=== PATIENT | male | born 1990 | race Caucasian/White ===

== ENCOUNTER 2016-03-26 07:40 | Inpatient (IN) | payer OTHER, MEDICAID ==
[2016-03-21 14:16] LABS: % IMMATURE GRANULYOCYTES 0.4 % (0.0-1.1); ABSOLUTE IMMATURE GRANULOCYTES 0.03 10^3/uL (0.00-0.10); ADD DIFF? NO; ADD MORPH? NO; ADD SCAN? NO; ATYPICAL LYMPHOCYTE FLAG 10 (0-99); FRAGMENT RBC FLAG 0 (0-99); HEMATOCRIT 48.4 % (40.0-51.0); HEMOGLOBIN 16.9 g/dL (13.7-17.5); LEFT SHIFT FLG 0 (0-99); LIPEMIA HEMOLYSIS FLAG 90 (0-99); MEAN CELL HEMOGLOBIN CONCENTR. 34.9 g/dL (32.4-36.7); MEAN CELL VOLUME 88.6 fL (81.5-99.8); MEAN PLATELET VOLUME 9.8 fL (8.7-11.7); PLATELET CLUMPS FLAG 0 (0-99); PLATELET COUNT 300 10^3/uL (150-400); RED BLOOD CELL COUNT 5.46 10^6/uL (4.40-6.38); RED CELL DISTRIBUTION WIDTH 12.6 % (11.5-15.2)
[2016-03-21 14:36] LABS: ANION GAP 11 mEq/L (8-16); CALCIUM 10.4 mg/dL (8.5-10.4); CARBON DIOXIDE 29 mEq/l (22-31); CHLORIDE 101 mEq/L (97-110); GLOMERULAR FILTRATION RATE > 60; GLUCOSE 86 mg/dL (70-100); POTASSIUM 4.3 mEq/L (3.5-5.2); SODIUM 141 mEq/L (134-144)
[2016-03-26] MEDS ORDERED: ceFAZolin 2 GM/DEXTROSE 100 ML IV ONE (09:00)
[2016-03-26] MEDS ORDERED: DEXAMETHASONE 10 MG/ML VIAL IVP ONE (09:00)
[2016-03-26] MEDS ORDERED: fentaNYL 100 MCG/2 ML INJ IT ONE (09:00)
[2016-03-26] MEDS ORDERED: morphINE PF 5 MG/10 ML INJ IT ONE (09:00)
[2016-03-26] MEDS ORDERED: LR 1,000 ML IV ONE (09:16)
[2016-03-26] MEDS ORDERED: LIDOCAINE 1% 5 ML SDV ID PRN (09:16)
[2016-03-26] MEDS ORDERED: REMIFENTANIL HCL 1 MG VIAL ONE ×3 (09:36→15:39)
[2016-03-26] MEDS ORDERED: fentaNYL 100 MCG/2 ML INJ ONE ×2 (09:36→16:08)
[2016-03-26] MEDS ORDERED: PROPOFOL 200 MG/20 ML VIAL ONE (09:37)
[2016-03-26] MEDS ORDERED: PROPOFOL/EMULSION 500 MG/50 ML BOTTLE IV ONE ×3 (09:37→15:39)
[2016-03-26] MEDS ORDERED: BUPIVACAINE 0.25% 30 ML SDV ONE (10:08)
[2016-03-26] MEDS ORDERED: THROMBIN (RECOMBINANT) 5,000 UNIT VIAL TP ONE (10:08)
[2016-03-26] MEDS ORDERED: BUPIVACAINE/EPI 0.25% 30 ML SDV ONE ×3 (10:08→16:28)
[2016-03-26] MEDS ORDERED: BACITRACIN 50,000 UNITS/10 ML SYR IRR ONE ×2 (10:09→11:53)
[2016-03-26] MEDS ORDERED: CITRATE DEXTROSE SOLN 500 ML BAG ONE ×2 (10:16→13:27)
[2016-03-26] MEDS ORDERED: MIDAZOLAM 2 MG/2 ML VIAL ONE (10:16)
[2016-03-26] MEDS ORDERED: HYDROmorphONE/DILAUDID 2 MG/ML SYR ONE ×2 (11:30→14:55)
[2016-03-26] MEDS ORDERED: KETAMINE 100 MG/10 ML SYR IVP ONE (15:39)
[2016-03-26] MEDS ORDERED: morphINE PF 10 MG/10 ML INJ ONE (16:09)
[2016-03-26 17:25] LABS: % IMMATURE GRANULYOCYTES 1.2 % (0.0-1.1); ABSOLUTE IMMATURE GRANULOCYTES 0.21 10^3/uL (0.00-0.10); ADD DIFF? NO; ADD MORPH? NO; ADD SCAN? NO; ATYPICAL LYMPHOCYTE FLAG 10 (0-99); FRAGMENT RBC FLAG 0 (0-99); HEMATOCRIT 38.9 % (40.0-51.0); HEMOGLOBIN 13.6 g/dL (13.7-17.5); LEFT SHIFT FLG 10 (0-99); LIPEMIA HEMOLYSIS FLAG 90 (0-99); MEAN CELL HEMOGLOBIN 31.4 pg (27.9-34.1); MEAN CELL VOLUME 89.8 fL (81.5-99.8); PLATELET CLUMPS FLAG 0 (0-99); PLATELET COUNT 269 10^3/uL (150-400); RED BLOOD CELL COUNT 4.33 10^6/uL (4.40-6.38); RED CELL DISTRIBUTION WIDTH 12.6 % (11.5-15.2)
[2016-03-26 17:44] LABS: INR 1.23 (0.83-1.16); PROTIME(PATIENT) 15.5 SEC (12.0-15.0)
[2016-03-26] MEDS ORDERED: diphenhydrAMINE 25 MG CAP PO PRN (18:19)
[2016-03-26] MEDS ORDERED: HYDROmorphONE/DILAUDID 1 MG/ML SYR IVP PRN (18:19)
[2016-03-26] MEDS ORDERED: MAGNESIUM HYDROXIDE 30 ML UDCUP PO PRN (18:19)
[2016-03-26] MEDS ORDERED: BISACODYL 10 MG SUPP PR PRN (18:19)
[2016-03-26] MEDS ORDERED: LACTULOSE 20 GM/30 ML UDCUP PO PRN (18:19)
[2016-03-26] MEDS ORDERED: ACETAMINOPHEN 325 MG TAB PO PRN (18:19)
[2016-03-26] MEDS ORDERED: ONDANSETRON DISINTEGRATING 4 MG TAB PO PRN (18:19)
[2016-03-26] MEDS ORDERED: DIAZEPAM 10 MG/2 ML SYR IVP PRN (18:19)
[2016-03-26] MEDS ORDERED: MAG HYDROX/AL HYDROX/SIMETH 30 ML UDCUP PO PRN (18:19)
[2016-03-26] MEDS ORDERED: NALOXONE HCL 0.4 MG/ML INJ IVP PRN (18:28)
--- NOTE | 2016-03-26 18:31 | POSTOPPROG ---
Post Op Note Date of Operation: 03/26/16 Surgeon: Venkata Gaitan First Front Ventilator: jarrod Anesthesiologist: Chago Hatch Anesthesia: GET(General Endotracheal) Pre-op Diagnosis: Scoliosis (Thoracolumbar) Post-op Diagnosis: same Indication: progressive curve, back pain Procedure: T3-L5 fusion Findings: scoliosis Inf/Abcess present in the surg proc area at time of surgery?: No EBL: Greater than 1000 Complications: none Drains: Pablo Kilgore (to bulb suction)
[2016-03-26] MEDS ORDERED: CEFAZOLIN 2 GM/DEXTROSE/100 ML BAG IV ONE (18:42)
--- NOTE | 2016-03-26 18:44 | NEUSURGPN ---
Assessment/Plan: post op check: status post T3-L5 fusion for scoliosis Plan: CPM in ICU post op labs ordered upon arrival to PACU SAMRA to suction Precedex drip per Anesthesiology NS without K for fluids at 100ml/hr Subjective: eyes closed, wakes to sternal rub Objective: Vitals: HR: 91 O2:99% BP: 98/68 Neuro: PERRLA opens eyes to sternal rub sqeezes hands weakly wiggles toes weakly Neurosurgery Physical Exam - Vitals, I&O, Labs Laboratory Results 03/26/16 17:10 03/21/16 13:38 ICD10 Worksheet Patient Problems: Problems Problem Status Onset Scoliosis Acute - ICD10 Problem Qualifiers (1) Scoliosis Qualifiers: Scoliosis type: S Idiopathic scoliosis type: I Spinal region: S
[2016-03-26 18:58] LABS: % IMMATURE GRANULYOCYTES 1.1 % (0.0-1.1); ABSOLUTE IMMATURE GRANULOCYTES 0.24 10^3/uL (0.00-0.10); ADD DIFF? NO; ADD MORPH? NO; ADD SCAN? NO; ATYPICAL LYMPHOCYTE FLAG 10 (0-99); FRAGMENT RBC FLAG 0 (0-99); HEMATOCRIT 37.8 % (40.0-51.0); LEFT SHIFT FLG 10 (0-99); LIPEMIA HEMOLYSIS FLAG 90 (0-99); MEAN CELL HEMOGLOBIN 31.3 pg (27.9-34.1); MEAN CELL HEMOGLOBIN CONCENTR. 34.4 g/dL (32.4-36.7); MEAN CELL VOLUME 90.9 fL (81.5-99.8); MEAN PLATELET VOLUME 10.1 fL (8.7-11.7); PLATELET CLUMPS FLAG 0 (0-99); PLATELET COUNT 292 10^3/uL (150-400); RED BLOOD CELL COUNT 4.16 10^6/uL (4.40-6.38); RED CELL DISTRIBUTION WIDTH 12.8 % (11.5-15.2)
[2016-03-26] MEDS: NS 1,000 ML IV SCH (19:00)
[2016-03-26] MEDS: DEXMEDETOMIDINE HCL 400 MCG in NS 100 ML IV SCH (19:00)
[2016-03-26 19:23] LABS: ANION GAP 7 mEq/L (8-16); CALCIUM 7.6 mg/dL (8.5-10.4); CARBON DIOXIDE 19 mEq/l (22-31); CHLORIDE 111 mEq/L (97-110); GLOMERULAR FILTRATION RATE > 60; GLUCOSE 133 mg/dL (70-100); SODIUM 137 mEq/L (134-144)
[2016-03-26 19:29] LABS: POTASSIUM 6.7 mEq/L (3.5-5.2)
[2016-03-26] MEDS: FAMOTIDINE 20 MG/NACL 50 ML IV SCH (19:40)
[2016-03-26] MEDS: HYDROmorphONE/DILAUDID 6 MG/30 ML PCA IV PRN (19:40)
[2016-03-26] MEDS: ONDANSETRON 4 MG/2 ML VIAL IVP PRN (20:07)
[2016-03-26 22:30] LABS: HEMATOCRIT 40.5 % (40.0-51.0); MEAN CELL HEMOGLOBIN 31.6 pg (27.9-34.1); MEAN CELL HEMOGLOBIN CONCENTR. 34.6 g/dL (32.4-36.7); MEAN CELL VOLUME 91.4 fL (81.5-99.8); RED BLOOD CELL COUNT 4.43 10^6/uL (4.40-6.38); RED CELL DISTRIBUTION WIDTH 12.9 % (11.5-15.2)
[2016-03-26] MEDS: morphINE SR 15 MG TAB PO SCH (22:35)
[2016-03-26] MEDS: SENNOSIDES/DOCUSATE SODIUM TAB PO SCH (22:35)
[2016-03-26] MEDS: POLYETHYLENE GLYCOL 3350 17 GM PKT PO SCH (22:38)
[2016-03-26 22:39] LABS: ALBUMIN 3.1 g/dL (3.5-5.0); ANION GAP 4 mEq/L (8-16); CALCIUM 7.9 mg/dL (8.5-10.4); CARBON DIOXIDE 20 mEq/l (22-31); CHLORIDE 108 mEq/L (97-110); GLOMERULAR FILTRATION RATE > 60; GLUCOSE 134 mg/dL (70-100); MAGNESIUM 1.3 mg/dL (1.6-2.3); SODIUM 132 mEq/L (134-144)
[2016-03-26 22:43] LABS: POTASSIUM 6.6 mEq/L (3.5-5.2)
[2016-03-26] MEDS ORDERED: FUROSEMIDE 20 MG/2 ML VIAL ONE (23:25)
[2016-03-26] MEDS ORDERED: MAGNESIUM SULF 2 GM/WATER 50 ML IV ONE (23:30)
[2016-03-26] MEDS ORDERED: FUROSEMIDE 20 MG/2 ML VIAL IV ONE (23:30)
--- NOTE | 2016-03-27 00:01 | GOP ---
[f rep st] OPERATIVE REPORT DATE OF OPERATION: 03/26/2016 SURGEON: Venkata Gaitan MD NEUROSURGEON: Venkata Gaitan MD DELICATESSEN DEPARTMENT MANAGER: Kyler Moe. ANESTHESIA: General endotracheal. PREOPERATIVE DIAGNOSIS: 1. Progressive idiopathic adolescent scoliosis with intractable back pain. 2. Failed conservative care. POSTOPERATIVE DIAGNOSIS: 1. Progressive idiopathic adolescent scoliosis with intractable back pain. 2. Failed conservative care. PROCEDURE PERFORMED: 1. T3 through L5 posterior segmental (pedicle screw and axial device) fixation and posterolateral fusion with local autograft, bone morphogenic protein, and morselized allograft. 2. Use of intraoperative fluoroscopy and computer volumetric stereotactic navigation. 3. Injection of intrathecal narcotic analgesics for postoperative pain control. FINDINGS: ESTIMATED BLOOD LOSS: 3500 cc. INDICATIONS: The patient is a 25-year-old man with intractable back pain secondary to a progressive adolescent idiopathic curve that has increased up to 55 degrees in the thoracic spine with the apex at T8, in 43 degrees in the lumbar spine with the apex at L1. He has failed conservative care and presents now for stabilization. The patient understands that there is no guarantee of pain relief or good outcome, and he could actually be worse after surgery or have new complications or worsened symptoms. DESCRIPTION OF PROCEDURE: After informed consent was obtained, the patient was taken to the operating room and placed in the prone position on the Pablo table. The thoracolumbosacral areas were prepped and draped in a sterile fashion from the cervical region all the way down to the sacrum. Intraoperative fluoroscopy was utilized to localize the correct levels. The subcutaneous and intramuscular tissues were then infiltrated with local anesthesia. A midline linear incision was created from approximately T3 through L5. This was carried down to the fascial layer, which was then incised using monopolar electrocautery and carried in a subperiosteal plane along the spinous processes and lamina bilaterally. Note that the patient had a very severe curve in combination with his very large body habitus, which made the approach much more difficult than normal. The patient also likely had some vena cava backup, because he bled more than normal. All of this made the approach much more difficult, and it took approximately 2-3 times as long as normal. We were able to carefully expose all the levels all the way out to the facet joints. Following this, the O-arm neuronavigational system was brought in and 3 -D reconstructed images obtained. Pedicle screws were placed bilaterally from T3 through L5. The upper T3, T4, and T5 screws were very difficult, as were some of the other screws, given the very small or almost non-existent pedicles. The right T3, T4, and T5 screws were removed because I did not feel like they were in good position and may have caused problems postoperatively. The left T5 screw was also removed. It was decided to place an axial device after realigned his spine slightly for added fixation at the top and bottom of the construct in order to hopefully avoid hardware failure and/or a nonunion. Following re-verification of good screw positioning, using 3D reconstructed images and removal of any bad screw, the rods were contoured and placed with all the locking caps loose. They were then rotated such that the coronal curve was reduced and the lumbar curve was increased, as well as the thoracic curve into the more normal sagittal posture. We were not overly aggressive and tried to straighten the patient's spine in the coronal plane to normal. I explained to the patient that this would require a much more extensive procedure, and I did not think this was in his best interest. We did achieve adequate reduction of the curve and an increase in lumbar lordosis. The locking caps were then all secured, and after verification of good positioning using biplanar fluoroscopy, an axial device was placed at the T3-4 level and the L4-5 level in order to hopefully prevent hardware failure and a nonunion. The lamina and facet joints were extensively decorticated, and the local autograft from this, along with multiple facetectomies, was placed out laterally with bone morphogenic protein and morselized allograft for posterolateral fusion from T3 through L5. The entire procedure was more difficult than normal, given the patient's body habitus and the depth of the wound required, and the increased retraction and significantly more bleeding than normal, although it never got out of hand to the point that it was dangerous. We did recycle all his blood that we could and gave about 2000 cc back to him via use of the CellSaver. Following placement of all the instrumentation and bone graft, 200 mcg of Duramorph, along with 50 mcg of fentanyl were injected at each thecally at the L3-4 level. The subcutaneous and intramuscular tissues were re-infiltrated with local anesthesia. A drain was placed. The wound was closed in a layered fashion using interrupted Vicryl sutures, followed by Steri-Strips on the skin. COMPLICATIONS: None. DISPOSITION: The patient is currently in the process of being repositioned for extubation. /[id number]/MODL MTDD
[2016-03-27 01:00] LABS: ANION GAP 8 mEq/L (8-16); CALCIUM 7.5 mg/dL (8.5-10.4); CARBON DIOXIDE 21 mEq/l (22-31); CHLORIDE 109 mEq/L (97-110); CREATININE 1.1 mg/dL (0.7-1.3); GLOMERULAR FILTRATION RATE > 60; GLUCOSE 147 mg/dL (70-100); POTASSIUM 5.4 mEq/L (3.5-5.2); SODIUM 138 mEq/L (134-144)
[2016-03-27] MEDS: DEXMEDETOMIDINE HCL 400 MCG in NS 100 ML IV SCH (01:28)
[2016-03-27 05:17] LABS: % IMMATURE GRANULYOCYTES 0.5 % (0.0-1.1); ABSOLUTE IMMATURE GRANULOCYTES 0.06 10^3/uL (0.00-0.10); ADD DIFF? NO; ADD MORPH? NO; ADD SCAN? NO; ATYPICAL LYMPHOCYTE FLAG 10 (0-99); FRAGMENT RBC FLAG 0 (0-99); HEMATOCRIT 32.2 % (40.0-51.0); HEMOGLOBIN 10.9 g/dL (13.7-17.5); LEFT SHIFT FLG 0 (0-99); LIPEMIA HEMOLYSIS FLAG 90 (0-99); MEAN CELL HEMOGLOBIN 31.1 pg (27.9-34.1); MEAN CELL HEMOGLOBIN CONCENTR. 33.9 g/dL (32.4-36.7); MEAN CELL VOLUME 91.7 fL (81.5-99.8); PLATELET CLUMPS FLAG 20 (0-99); PLATELET COUNT 199 10^3/uL (150-400); RED BLOOD CELL COUNT 3.51 10^6/uL (4.40-6.38)
[2016-03-27 05:36] LABS: ANION GAP 7 mEq/L (8-16); CALCIUM 8.1 mg/dL (8.5-10.4); CARBON DIOXIDE 22 mEq/l (22-31); CHLORIDE 107 mEq/L (97-110); CREATININE 1.1 mg/dL (0.7-1.3); GLOMERULAR FILTRATION RATE > 60; GLUCOSE 126 mg/dL (70-100); POTASSIUM 5.5 mEq/L (3.5-5.2); SODIUM 136 mEq/L (134-144)
[2016-03-27 06:11] LABS: MAGNESIUM 1.9 mg/dL (1.6-2.3)
--- NOTE | 2016-03-27 07:48 | SOAPPROG ---
SOAP Progress Note Assessment/Plan: Assessment: status post T3-L5 fusion for scoliosis POD #1 doing well Plan: CPM in ICU follow K SAMRA to suction out of bed with assist as tolerated TLSO today Continue Precedex sedation Discussed with Dr. Ames 03/27/16 07:48 Subjective: awake, alert , pain controlled. Objective: Vital Signs Temp Pulse Resp BP Pulse Ox 37.1 C 72 14 99/55 L 99 03/27/16 04:00 03/27/16 06:00 03/27/16 06:00 03/27/16 06:00 03/27/16 06:00 Laboratory Results 03/27/16 05:10 03/27/16 05:10 03/26/16 03/27/16 03/28/16 05:59 05:59 05:59 Intake Total 4326.2 Output Total 3170 Balance 1156.2 PT 15.5 SEC (12.0-15.0) H 03/26/16 17:10 INR 1.23 (0.83-1.16) H 03/26/16 17:10 NEURO: BROWER, sens +LT follows commands SAMRA: 620ml ICD10 Worksheet Patient Problems: Problems Problem Status Onset Scoliosis Acute - ICD10 Problem Qualifiers (1) Scoliosis Qualifiers: Scoliosis type: S Idiopathic scoliosis type: I Spinal region: S
[2016-03-27] MEDS: POLYETHYLENE GLYCOL 3350 17 GM PKT PO SCH ×3 (08:34→22:23)
[2016-03-27] MEDS: SENNOSIDES/DOCUSATE SODIUM TAB PO SCH ×2 (08:34→22:23)
[2016-03-27] MEDS: ENOXAPARIN 40 MG/0.4 ML SYR SC SCH (08:34)
[2016-03-27] MEDS: morphINE SR 15 MG TAB PO SCH ×2 (08:34→22:23)
[2016-03-27] MEDS: FAMOTIDINE 20 MG/NACL 50 ML IV SCH ×2 (08:34→22:23)
[2016-03-27] MEDS: NS 1,000 ML IV SCH ×2 (09:33→16:08)
--- NOTE | 2016-03-27 13:23 | GCON ---
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 HISTORY OF PRESENT ILLNESS: Mr. Israel is a pleasant 25-year-old, white male with a past medical history including significant scoliosis. He has been having chronic pain secondary to this. He was seen in the emergency room on 02/06/2016, for chronic back pain. He underwent T3 through L5 fusion for scoliosis. In discussion with the patient, overall he feels quite better, the pain is well deepa erated at this point. He is out of bed. He denies any shortness of breath, cough or productive spu wade. There was no fever, no night sweats. He is currently resting comfortably. He is still on Pre cedex. PAST MEDICAL HISTORY: Significant for scoliosis. ALLERGIES: No known allergies to medications. SOCIAL HISTORY: He is a daily smoker. No significant alcohol use. He is currently unemployed. He has excellent family support. PHYSICAL EXAM: VITAL SIGNS: Blood pressure is 118/58, pulse is 77, respirations 20, temperature 36 .5, oxygen saturation 100% on 2 L. GENERAL APPEARANCE: He is a mildly overweight, 25-year-old, whi te male, who is resting comfortably in no acute distress. HEENT: Eyes: YRN. EOMI. Throat: [place] ws no erythema or tonsillar hypertrophy. NECK: Supple. There is no cervical adenopathy. HEART: Regular rate and rhythm without murmurs, rubs, or gallops. LUNGS: Clear to auscultation. No wheez e or rhonchi. ABDOMEN: Soft, nontender. Bowel sounds are present in all 4 quadrants. EXTREMITIES : No clubbing, cyanosis, or edema. LABORATORIES: White count 12.4, hemoglobin 10, hematocrit 32, platelet count is 199. Sodium 138, p otassium 5.4, chloride 109, CO2 is 21, BUN 15, creatinine 1.1, glucose is 147. IMPRESSION: 1. Severe scoliosis. 2. Chronic back pain. 3. Status post T3 through L5 fusion. RECOMMENDATIONS: 1. Continue aggressive pain control. 2. DVT and PE prophylaxis. 3. Stress ulcer prophylaxis. 4. PT and OT. 5. Early ambulation. /[id number]/MODL
[2016-03-27] MEDS ORDERED: LABETALOL HCL 5 MG/ML 20 ML MDV IVP PRN (21:55)
[2016-03-27 22:07] LABS: HEMATOCRIT 31.4 % (40.0-51.0); HEMOGLOBIN 10.7 g/dL (13.7-17.5)
[2016-03-27] MEDS: HYDROmorphONE/DILAUDID 6 MG/30 ML PCA IV PRN (23:14)
[2016-03-28] MEDS: NS 1,000 ML IV SCH ×2 (00:15→08:47)
[2016-03-28] MEDS: ONDANSETRON 4 MG/2 ML VIAL IVP PRN (00:17)
--- NOTE | 2016-03-28 08:18 | SOAPPROG ---
SOAP Progress Note Assessment/Plan: Assessment: status post T3-L5 fusion for scoliosis POD #2 Doing well, up to chair this morning and walking some. still requiring IV pain meds Plan: follow K- 5.5 this am Urine output 1085 in last 24hrs SAMRA to suction- output 710 in last 24 hours H/H-10.7/31.4 out of bed with assist as tolerated TLSO when OOB Wean off of IV meds-po today Discussed with Dr. Ames Plan: 03/28/16 08:15 Subjective: Patient with continued back pain that he rates as 8/10 this am but just got back into bed form a few hours in the chair and walking this morning. still having troubles voiding on his own. Denies fever, chills, leg pain Objective: Vital Signs Temp Pulse Resp BP Pulse Ox 37.3 C 109 H 17 151/84 H 97 03/28/16 04:49 03/28/16 04:49 03/28/16 04:49 03/28/16 04:49 03/28/16 04:49 Laboratory Results 03/27/16 21:50 03/27/16 05:10 03/27/16 03/28/16 03/29/16 05:59 05:59 05:59 Intake Total 4326.2 3358 Output Total 3170 1805 Balance 1156.2 1553 PT 15.5 SEC (12.0-15.0) H 03/26/16 17:10 INR 1.23 (0.83-1.16) H 03/26/16 17:10 NAD, VSS BLE 5/5= Sensation intact to lt touch Incision c/d/i-dressed SAMRA X1- output 710mL in last 24 ICD10 Worksheet Patient Problems: Problems Problem Status Onset Scoliosis Acute
[2016-03-28] MEDS: POLYETHYLENE GLYCOL 3350 17 GM PKT PO SCH ×2 (08:40→15:47)
[2016-03-28] MEDS: morphINE SR 15 MG TAB PO SCH ×2 (08:40→21:22)
[2016-03-28] MEDS: ENOXAPARIN 40 MG/0.4 ML SYR SC SCH (08:40)
[2016-03-28] MEDS: FAMOTIDINE 20 MG/NACL 50 ML IV SCH ×2 (08:40→22:42)
[2016-03-28] MEDS: SENNOSIDES/DOCUSATE SODIUM TAB PO SCH ×2 (08:41→21:23)
[2016-03-28] MEDS: HYDROCODONE/APAP 10/325 TAB PO PRN ×2 (12:40→18:09)
[2016-03-28] MEDS: DIAZEPAM 5 MG TAB PO PRN (12:41)
[2016-03-28] MEDS: METHOCARBAMOL 750 MG TAB PO PRN (15:47)
[2016-03-28] MEDS: OXYCODONE/APAP 5/325 TAB PO PRN (21:31)
[2016-03-28] MEDS: FAMOTIDINE 20 MG TAB PO SCH (22:40)
[2016-03-29] MEDS: POLYETHYLENE GLYCOL 3350 17 GM PKT PO SCH ×4 (00:18→22:25)
[2016-03-29] MEDS: NS 1,000 ML IV SCH ×2 (01:35→11:03)
[2016-03-29] MEDS: HYDROCODONE/APAP 10/325 TAB PO PRN ×4 (01:35→22:23)
[2016-03-29] MEDS: METHOCARBAMOL 750 MG TAB PO PRN ×3 (01:42→18:52)
[2016-03-29] MEDS: ONDANSETRON 4 MG/2 ML VIAL IVP PRN (06:34)
[2016-03-29] MEDS: DIAZEPAM 5 MG TAB PO PRN ×2 (06:42→22:23)
[2016-03-29 06:43] LABS: % IMMATURE GRANULYOCYTES 0.7 % (0.0-1.1); ABSOLUTE IMMATURE GRANULOCYTES 0.08 10^3/uL (0.00-0.10); ADD DIFF? NO; ADD MORPH? NO; ADD SCAN? NO; ATYPICAL LYMPHOCYTE FLAG 10 (0-99); FRAGMENT RBC FLAG 0 (0-99); HEMATOCRIT 27.9 % (40.0-51.0); HEMOGLOBIN 9.7 g/dL (13.7-17.5); LEFT SHIFT FLG 0 (0-99); LIPEMIA HEMOLYSIS FLAG 90 (0-99); MEAN CELL HEMOGLOBIN 32.1 pg (27.9-34.1); MEAN CELL HEMOGLOBIN CONCENTR. 34.8 g/dL (32.4-36.7); MEAN CELL VOLUME 92.4 fL (81.5-99.8); MEAN PLATELET VOLUME 9.8 fL (8.7-11.7); PLATELET CLUMPS FLAG 10 (0-99); PLATELET COUNT 216 10^3/uL (150-400); RED BLOOD CELL COUNT 3.02 10^6/uL (4.40-6.38); RED CELL DISTRIBUTION WIDTH 13.2 % (11.5-15.2)
[2016-03-29 07:34] LABS: ANION GAP 7 mEq/L (8-16); CALCIUM 8.3 mg/dL (8.5-10.4); CARBON DIOXIDE 28 mEq/l (22-31); CHLORIDE 101 mEq/L (97-110); CREATININE 0.8 mg/dL (0.7-1.3); GLOMERULAR FILTRATION RATE > 60; GLUCOSE 97 mg/dL (70-100); POTASSIUM 4.2 mEq/L (3.5-5.2); SODIUM 136 mEq/L (134-144)
--- NOTE | 2016-03-29 07:55 | SOAPPROG ---
SOAP Progress Note Assessment/Plan: Assessment: status post T3-L5 fusion for scoliosis on 03/26 Tachycardia overnight and continues this AM, maintaining good BP C/O Pain in his middle back which may be incisional versus related to PE D-dimer elevated at 1.03 Discussed with Hospitalist who agrees to see and ordered EKG Neuro stable He is on Lovenox Plan: Stat CT angio to rule out PE EKG 03/29/16 08:00 Subjective: awake, alert, complains of back pain centered mid thoracic spine denies leg pain weakness or tingling Objective: Vital Signs Temp Pulse Resp BP Pulse Ox 36.8 C 123 H 19 140/88 H 97 03/29/16 04:00 03/29/16 04:00 03/29/16 04:00 03/29/16 04:00 03/29/16 04:00 Laboratory Results 03/29/16 06:35 03/29/16 06:35 03/28/16 03/29/16 03/30/16 05:59 05:59 05:59 Intake Total 3358 1940 Output Total 1805 1395 30 Balance 1553 545 -30 PT 15.5 SEC (12.0-15.0) H 03/26/16 17:10 INR 1.23 (0.83-1.16) H 03/26/16 17:10 D-dimer 1.03 Neuro: BROWER, sens +LT follows commands awake alert and oriented SAMRA: 30 ml ICD10 Worksheet Patient Problems: Problems Problem Status Onset Scoliosis Acute - ICD10 Problem Qualifiers (1) Scoliosis Qualifiers: Scoliosis type: S Idiopathic scoliosis type: I Spinal region: S
[2016-03-29] MEDS ORDERED: IOPAMIDOL (ISOVUE 370) 100 ML BTL IV ONE (08:04)
[2016-03-29] MEDS: FAMOTIDINE 20 MG TAB PO SCH ×2 (08:59→20:33)
[2016-03-29] MEDS: ENOXAPARIN 40 MG/0.4 ML SYR SC SCH (08:59)
[2016-03-29] MEDS: morphINE SR 15 MG TAB PO SCH ×2 (08:59→20:33)
[2016-03-29] MEDS: SENNOSIDES/DOCUSATE SODIUM TAB PO SCH ×2 (08:59→20:33)
--- NOTE | 2016-03-29 09:46 | CPEKG ---
Heart Rate: 118 RR Interval: 508 P-R Interval: 160 QRSD Interval: 96 QT Interval: 316 QTC Interval: 443 P [place]: 34 QRS [place]: 77 T Wave [place]: -20 EKG Severity - BORDERLINE ECG - EKG Impression: SINUS TACHYCARDIA Electronically Signed By: Ismael Vaca 29-Mar-2016 13:26:00
[2016-03-29] MEDS: OXYCODONE/APAP 5/325 TAB PO PRN ×2 (12:13→18:52)
--- NOTE | 2016-03-29 18:16 | PDGENHP ---
History and Physical - Chief Complaint Acute back pain - History of Present Illness Primary service: Neurosurgery Consulting provider: Dr. Gaitan Reason for consultation: Tachycardia HPI: 25-year-old male presenting with acute back pain located in the mid thoracic spine, characterized as sharp and severe, onset of symptoms in January of 2016 and duration persistent thereafter. Patient reports that the pain has improved postoperatively and that now it is mostly localized around the surgical site. Reports that he has some associated constipation. He denies any urinary frequency, dysuria, diarrhea, cough, fever, chills. He reports that the pain is somewhat exacerbated by movement and is significantly alleviated by pain medications he is receiving. He does report that the pain relief, while sufficient, does not last for his entire interval of discomfort. He has reportedly been eating and drinking normal amounts. History Information - Allergies/Home Medication List Allergies/Adverse Reactions: No Known Allergies Allergy (Verified 03/19/16 13:54) Home Medications: Cyclobenzaprine [Flexeril 10 MG (*)] 10 mg PO HS PRN 03/15/16 [Last Taken ] Multivitamin 1 tab PO DAILY 03/15/16 [Last Taken 03/23/16] I have personally reviewed and updated: family history, medical history, social history, surgical history - Past Medical History Additional medical history: Scoliosis - Surgical History Additional surgical history: T3-T5 fusion on 03/26/2016 - Social History Smoking Status: Light smoker Alcohol Use: Occasionally Drug Use: None Additional social history: Normally independent in his ADLs Review of Systems ROS: 10pt was reviewed & negative except for what was stated in HPI & below Gastrointestinal: Reports: constipation Muscolosketal: Reports: back pain Physical Exam Temp Pulse Resp BP Pulse Ox 36.8 C 107 H 15 146/87 H 98 03/29/16 15:17 03/29/16 15:17 03/29/16 15:17 03/29/16 15:17 03/29/16 15:17 O2 (L/minute) 2 Constitutional: no apparent distress, appears nourished, not in pain, obese Eyes: PERRL, anicteric sclera, EOMI Ears, Nose, Mouth, Throat: moist mucous membranes, hearing normal, ears appear normal, no oral mucosal ulcers Cardiovascular: tachycardia, No systolic murmur, No irregularly irregular, No edema Respiratory: no respiratory distress, no rales or rhonchi, clear to auscultation , reduced air movement (Bilaterally secondary to poor inspiratory effort) Gastrointestinal: normoactive bowel sounds, soft, non-tender abdomen, no palpable masses, No distension Neurologic: AAOx3, sensation intact bilaterally, No weakness (Motor strength 5/ 5 bilateral lower) Psychiatric: interacting appropriately, not anxious, not encephalopathic, thought process linear Lab Data & Imaging Review 03/29/16 06:35 03/29/16 06:35 WBC 12.29 10^3/uL (3.80-9.50) H 03/29/16 06:35 RBC 3.02 10^6/uL (4.40-6.38) L 03/29/16 06:35 Hgb 9.7 g/dL (13.7-17.5) L 03/29/16 06:35 Hct 27.9 % (40.0-51.0) L 03/29/16 06:35 MCV 92.4 fL (81.5-99.8) 03/29/16 06:35 MCH 32.1 pg (27.9-34.1) 03/29/16 06:35 MCHC 34.8 g/dL (32.4-36.7) 03/29/16 06:35 RDW 13.2 % (11.5-15.2) 03/29/16 06:35 Plt Count 216 10^3/uL (150-400) 03/29/16 06:35 MPV 9.8 fL (8.7-11.7) 03/29/16 06:35 Neut % (Auto) 74.4 % (39.3-74.2) H 03/29/16 06:35 Lymph % (Auto) 14.6 % (15.0-45.0) L 03/29/16 06:35 [place] % (Auto) 9.4 % (4.5-13.0) 03/29/16 06:35 Eos % (Auto) 0.6 % (0.6-7.6) 03/29/16 06:35 Baso % (Auto) 0.3 % (0.3-1.7) 03/29/16 06:35 Nucleat RBC Rel Count 0.0 % (0.0-0.2) 03/29/16 06:35 Absolute Neuts (auto) 9.15 10^3/uL (1.70-6.50) H 03/29/16 06:35 Absolute Lymphs (auto) 1.80 10^3/uL (1.00-3.00) 03/29/16 06:35 Absolute Monos (auto) 1.15 10^3/uL (0.30-0.80) H 03/29/16 06:35 Absolute Eos (auto) 0.07 10^3/uL (0.03-0.40) 03/29/16 06:35 Absolute Basos (auto) 0.04 10^3/uL (0.02-0.10) 03/29/16 06:35 Absolute Nucleated RBC 0.00 10^3/uL (0-0.01) 03/29/16 06:35 Immature Gran % 0.7 % (0.0-1.1) 03/29/16 06:35 Immature Gran # 0.08 10^3/uL (0.00-0.10) 03/29/16 06:35 PT 15.5 SEC (12.0-15.0) H 03/26/16 17:10 INR 1.23 (0.83-1.16) H 03/26/16 17:10 D-Dimer 1.03 ug/mLFEU (0.00-0.50) H 03/29/16 06:35 Sodium 136 mEq/L (134-144) 03/29/16 06:35 Potassium 4.2 mEq/L (3.5-5.2) 03/29/16 06:35 Chloride 101 mEq/L (97-110) 03/29/16 06:35 Carbon Dioxide 28 mEq/l (22-31) D 03/29/16 06:35 Anion Gap 7 mEq/L (8-16) L 03/29/16 06:35 BUN 10 mg/dL (7-23) 03/29/16 06:35 Creatinine 0.8 mg/dL (0.7-1.3) 03/29/16 06:35 Estimated GFR > 60 03/29/16 06:35 Glucose 97 mg/dL (70-100) 03/29/16 06:35 Calcium 8.3 mg/dL (8.5-10.4) L 03/29/16 06:35 Phosphorus 4.2 mg/dL (2.5-4.5) 03/26/16 22:05 Magnesium 1.9 mg/dL (1.6-2.3) 03/27/16 05:10 Albumin 3.1 g/dL (3.5-5.0) L 03/26/16 22:05 Patient ABO/Rh O POSITIVE 03/21/16 13:38 Antibody Screen NEGATIVE 03/21/16 13:38 Visualized and Interpreted EKG results: Yes EKG Interpretation: Positive for: other (Sinus tachycardia with Q-wave in lead 3 as well as T-wave inversion) Assessment & Plan Assessment: 25-year-old male presents with acute lower back pain and scoliosis requiring thoracic spine fusion, complicated by systemic inflammatory response syndrome Plan: 1. Systemic inflammatory response syndrome. Acute, new problem this provider, no further workup indicated. Evidenced by tachycardia and leukocytosis without any clear evidence of infection. -the patient has been ruled out for pulmonary embolism with a negative CT angiogram -I suspect that the cause is postsurgical inflammation as well as pain and possible contribution from his anemia -would recommend that we increase his sustained release pain medication, perhaps up titrating to either 3 times daily or a higher dose twice daily -recommend that we continue monitoring his hemoglobin level and if it is significantly down trending or his hypoxia does not resolve with incentive spirometer, then we can trial 1 unit PRBC and gauge effect -anticipate the patient's tachycardia and leukocytosis will improve given time postoperatively 2. Atelectasis. Present on CT angiogram, will order incentive spirometer and have counseled the patient to utilize this more regularly 3. Acute blood loss anemia. Expected postoperatively, evidenced by hemoglobin level from 16.9-9.7, has indwelling drain -continue to monitor CBC -hold off on transfusion at this time, will reassess daily 4. Scoliosis. Pain management and postsurgical management under the direction of the surgical service -will order a bowel regiment to prevent constipation -reviewed outside records, emergency department report by Dr. French from 2015, reporting the patient was trialed on Flexeril and ibuprofen prior to this hospitalization Hospital Medicine service will continue to consult in this patient's daily care.
[2016-03-30] MEDS: METHOCARBAMOL 750 MG TAB PO PRN ×2 (04:17→12:57)
[2016-03-30] MEDS: HYDROCODONE/APAP 10/325 TAB PO PRN ×4 (04:17→20:22)
[2016-03-30 05:15] LABS: ABSOLUTE IMMATURE GRANULOCYTES 0.08 10^3/uL (0.00-0.10); ADD DIFF? NO; ADD MORPH? NO; ADD SCAN? NO; ATYPICAL LYMPHOCYTE FLAG 10 (0-99); FRAGMENT RBC FLAG 0 (0-99); HEMATOCRIT 26.2 % (40.0-51.0); HEMOGLOBIN 8.8 g/dL (13.7-17.5); LEFT SHIFT FLG 10 (0-99); LIPEMIA HEMOLYSIS FLAG 80 (0-99); MEAN CELL HEMOGLOBIN 31.8 pg (27.9-34.1); MEAN CELL HEMOGLOBIN CONCENTR. 33.6 g/dL (32.4-36.7); MEAN CELL VOLUME 94.6 fL (81.5-99.8); MEAN PLATELET VOLUME 10.4 fL (8.7-11.7); PLATELET CLUMPS FLAG 0 (0-99); PLATELET COUNT 239 10^3/uL (150-400); RED BLOOD CELL COUNT 2.77 10^6/uL (4.40-6.38); RED CELL DISTRIBUTION WIDTH 13.2 % (11.5-15.2)
[2016-03-30 05:35] LABS: ALANINE AMINOTRANSFERASE 48 IU/L (21-72); ALBUMIN 2.8 g/dL (3.5-5.0); ALKALINE PHOSPHATASE 40 IU/L (38-126); ANION GAP 7 mEq/L (8-16); ASPARTATE AMINOTRANSFERASE 53 IU/L (17-59); BILIRUBIN,TOTAL 0.4 mg/dL (0.1-1.4); CALCIUM 8.1 mg/dL (8.5-10.4); CARBON DIOXIDE 32 mEq/l (22-31); CHLORIDE 100 mEq/L (97-110); CREATININE 0.8 mg/dL (0.7-1.3); GLOMERULAR FILTRATION RATE > 60; GLUCOSE 92 mg/dL (70-100); POTASSIUM 3.8 mEq/L (3.5-5.2); SODIUM 139 mEq/L (134-144); TOTAL PROTEIN 5.2 g/dL (6.3-8.2)
[2016-03-30] MEDS: morphINE SR 15 MG TAB PO SCH ×3 (08:25→20:22)
[2016-03-30] MEDS: SENNOSIDES/DOCUSATE SODIUM TAB PO SCH ×2 (08:25→20:22)
[2016-03-30] MEDS: ENOXAPARIN 40 MG/0.4 ML SYR SC SCH (08:26)
[2016-03-30] MEDS: FAMOTIDINE 20 MG TAB PO SCH ×2 (08:26→20:23)
--- NOTE | 2016-03-30 12:42 | NEUSURGPN ---
Assessment/Plan: Assessment: status post T3-L5 fusion for scoliosis on 03/26 Tachycardia overnight and continues this AM especially on moving, maintaining good BP C/O incisional pain still but able to get up on own and voiding well Appreciate hospitalist service being on board- CT neg for PE yesterday Neuro stable H/H 8.8/26.2 down from 10/17/26.9- monitor SAMRA output 315 in last 24 He is on Lovenox Plan: Continue to optimize pain management Continue SAMRA PT/OT DVT Prophy: TEDs, SCDs, Lovenox Dispo planning- To rehab in next few days once cleared by therapies Discussed with Dr. Ames 03/28/16 08:15 Subjective: Patient doing well this morning, still with incisional pain. Voiding well. Able to ambulate to bathroom with help. No sob, cp. Still tachy this am on and off. Objective: Neuro: BROWER, sens +LT BLE 5/5= follows commands awake alert and oriented Incision c/d/i- dressed Catheter Insertion Date: 03/26/16 - Physician Discussed Patient with : Kandy Neurosurgery Physical Exam - Vitals, I&O, Labs I and O 03/29/16 03/30/16 03/31/16 05:59 05:59 05:59 Intake Total 1940 1825 Output Total 1395 1315 990 Balance 545 510 -990 Intake: Oral (ml) 1490 700 IV Infused (ml) 450 1125 Ns 1,000 ml @ 125 mls/hr 450 1125 IV CONT LEXX Rx#: [id number] Output: Urine (ml) 870 1000 900 Catheter 220 Toilet 650 1000 900 Wound Drainage (ml) 525 315 90 Left Back Pablo Kilgore 525 315 90 Other: Intake Quantity Yes Yes Sufficient Number of Voids Toilet 2 3 1 Bladder Scan Volume (ml) Toilet 471 Post Void Residual Scan Volume (ml) Toilet 84 Vital Signs Temp Pulse Resp BP Pulse Ox 36.5 C 133 H 17 144/94 H 90 L 03/30/16 11:34 03/30/16 11:34 03/30/16 11:34 03/30/16 11:34 03/30/16 11:34 Laboratory Results 03/30/16 04:21 03/30/16 04:21 ICD10 Worksheet Patient Problems: Problems Problem Status Onset Scoliosis Acute
[2016-03-30] MEDS: POLYETHYLENE GLYCOL 3350 17 GM PKT PO SCH ×3 (12:56→20:23)
--- NOTE | 2016-03-30 14:23 | HOSPPROG ---
Hospitalist Progress Note Objective: Vital Signs Temp Pulse Resp BP Pulse Ox 36.5 C 133 H 17 144/94 H 90 L 03/30/16 11:34 03/30/16 11:34 03/30/16 11:34 03/30/16 11:34 03/30/16 11:34 Laboratory Results 03/30/16 04:21 03/30/16 04:21 03/29/16 03/30/16 03/31/16 05:59 05:59 05:59 Intake Total 1940 1825 Output Total 1395 1315 1030 Balance 545 510 -1030 PT 15.5 SEC (12.0-15.0) H 03/26/16 17:10 INR 1.23 (0.83-1.16) H 03/26/16 17:10 ICD10 Worksheet Patient Problems: Problems Problem Status Onset Scoliosis Acute
--- NOTE | 2016-03-30 14:26 | HOSPPROG ---
Hospitalist Progress Note Assessment/Plan: Assessment: 25-year-old male presents with acute lower back pain and scoliosis requiring thoracic spine fusion, complicated by systemic inflammatory response syndrome Plan: 1. Systemic inflammatory response syndrome. Acute, evidenced by tachycardia and leukocytosis without any clear evidence of infection. -the patient has been ruled out for pulmonary embolism with a negative CT angiogram -I suspect that the cause is postsurgical inflammation as well as pain -would recommend that we increase his sustained release pain medication, to tid given that he is having breakthrough spikes of pain -will evaluate him tomorrow for oversedation on this higher dosage -DC tele, no indication -tachycardia improving today, leukocytosis improved 2. Atelectasis. Present on CT angiogram, will order incentive spirometer and have counseled the patient to utilize this more regularly 3. Acute blood loss anemia. Expected postoperatively, evidenced by hemoglobin level from 16.9-9.7, has indwelling drain -continue to monitor CBC -hold off on transfusion at this time, will reassess daily 4. Scoliosis. Pain management and postsurgical management under the direction of the surgical service -cont on bowel regimen -reviewed outside records, emergency department report by Dr. French from 2015, reporting the patient was trialed on Flexeril and ibuprofen prior to this hospitalization 5. Suspected post-op ileus. Passing flatus but no stool, cont on bowel regimen and given mag citrate today Hospital Medicine service will continue to consult in this patient's daily care. Subjective: Reports he is passing flatus but no stool, reports that he is experiencing significant amount of pain Objective: Vital Signs Temp Pulse Resp BP Pulse Ox 36.5 C 133 H 17 144/94 H 90 L 03/30/16 11:34 03/30/16 11:34 03/30/16 11:34 03/30/16 11:34 03/30/16 11:34 Laboratory Results 03/30/16 04:21 03/30/16 04:21 03/29/16 03/30/16 03/31/16 05:59 05:59 05:59 Intake Total 1940 1825 Output Total 1395 1315 1030 Balance 545 510 -1030 PT 15.5 SEC (12.0-15.0) H 03/26/16 17:10 INR 1.23 (0.83-1.16) H 03/26/16 17:10 - Physical Exam Constitutional: no apparent distress, obese, uncomfortable, No not in pain Cardiovascular: tachycardia, No systolic murmur, No irregularly irregular, No edema Respiratory: reduced air movement (Bilateral bases), No expiratory wheeze, No inspiratory crackles, No bronchial breath sounds Gastrointestinal: normoactive bowel sounds, soft, non-tender abdomen, no palpable masses Neurologic: AAOx3, sensation intact bilaterally Psychiatric: interacting appropriately, not anxious, not encephalopathic, thought process linear ICD10 Worksheet Patient Problems: Problems Problem Status Onset Scoliosis Acute
[2016-03-30] MEDS: OXYCODONE/APAP 5/325 TAB PO PRN (17:28)
[2016-03-30] MEDS: DIAZEPAM 5 MG TAB PO PRN (20:22)
[2016-03-31] MEDS: HYDROCODONE/APAP 10/325 TAB PO PRN ×5 (00:08→23:24)
[2016-03-31] MEDS: METHOCARBAMOL 750 MG TAB PO PRN ×4 (00:08→20:44)
[2016-03-31 05:09] LABS: % IMMATURE GRANULYOCYTES 1.9 % (0.0-1.1); ABSOLUTE IMMATURE GRANULOCYTES 0.15 10^3/uL (0.00-0.10); ABSOLUTE NRBC COUNT 0.02 10^3/uL (0-0.01); ADD DIFF? NO; ADD MORPH? NO; ADD SCAN? NO; ATYPICAL LYMPHOCYTE FLAG 20 (0-99); FRAGMENT RBC FLAG 0 (0-99); HEMATOCRIT 27.9 % (40.0-51.0); HEMOGLOBIN 9.3 g/dL (13.7-17.5); LEFT SHIFT FLG 10 (0-99); LIPEMIA HEMOLYSIS FLAG 80 (0-99); MEAN CELL HEMOGLOBIN 30.8 pg (27.9-34.1); MEAN CELL HEMOGLOBIN CONCENTR. 33.3 g/dL (32.4-36.7); MEAN CELL VOLUME 92.4 fL (81.5-99.8); MEAN PLATELET VOLUME 9.8 fL (8.7-11.7); NRBC-AUTO% 0.3 % (0.0-0.2); PLATELET CLUMPS FLAG 0 (0-99); PLATELET COUNT 316 10^3/uL (150-400); RED BLOOD CELL COUNT 3.02 10^6/uL (4.40-6.38); RED CELL DISTRIBUTION WIDTH 13.4 % (11.5-15.2)
[2016-03-31] MEDS: DIAZEPAM 5 MG TAB PO PRN ×2 (05:29→23:27)
[2016-03-31 05:42] LABS: ANION GAP 9 mEq/L (8-16); CALCIUM 8.7 mg/dL (8.5-10.4); CARBON DIOXIDE 31 mEq/l (22-31); CHLORIDE 97 mEq/L (97-110); CREATININE 0.8 mg/dL (0.7-1.3); GLOMERULAR FILTRATION RATE > 60; GLUCOSE 86 mg/dL (70-100); POTASSIUM 3.7 mEq/L (3.5-5.2); SODIUM 137 mEq/L (134-144)
[2016-03-31] MEDS: morphINE SR 15 MG TAB PO SCH ×3 (08:35→20:44)
[2016-03-31] MEDS: SENNOSIDES/DOCUSATE SODIUM TAB PO SCH ×2 (08:35→20:50)
[2016-03-31] MEDS: FAMOTIDINE 20 MG TAB PO SCH ×2 (08:35→20:44)
[2016-03-31] MEDS: ENOXAPARIN 40 MG/0.4 ML SYR SC SCH (08:36)
[2016-03-31] MEDS: POLYETHYLENE GLYCOL 3350 17 GM PKT PO SCH ×3 (08:36→20:50)
[2016-03-31] MEDS ORDERED: MAGNESIUM CITRATE 300 ML BOTTLE PO ONE (10:48)
--- NOTE | 2016-03-31 10:52 | HOSPPROG ---
Hospitalist Progress Note Assessment/Plan: Assessment: 25-year-old male presents with acute lower back pain and scoliosis requiring thoracic spine fusion, complicated by systemic inflammatory response syndrome Plan: 1. Systemic inflammatory response syndrome. Acute, evidenced by tachycardia and leukocytosis without any clear evidence of infection. -the patient has been ruled out for pulmonary embolism with a negative CT angiogram -I suspect that the cause is postsurgical inflammation as well as pain -HR 90s on exam, but increased in setting of VS checks -I have increased his sustained release pain medication, to tid given that he is having breakthrough spikes of pain, and he slept well w/o oversedation -leukocytosis improved -no further w/u for tachycardia indicated 2. Atelectasis. Present on CT angiogram, incentive spirometer and have counseled the patient to utilize this more regularly 3. Acute blood loss anemia. Expected postoperatively, evidenced by hemoglobin level from 16.9-9.7, has indwelling drain -continue to monitor CBC -hold off on transfusion at this time, will reassess daily 4. Scoliosis. Pain management and postsurgical management under the direction of the surgical service -cont on bowel regimen, mag citrate today 5. Suspected post-op ileus. Passing flatus but no stool, cont on bowel regimen and given mag citrate today Hospital Medicine service will continue to consult in this patient's daily care. Subjective: no BMs, slept well but had an episode of severe pain o/n Objective: Vital Signs Temp Pulse Resp BP Pulse Ox 37.1 C 126 H 16 138/89 H 87 L 03/31/16 08:00 03/31/16 08:00 03/31/16 08:00 03/31/16 08:00 03/31/16 08:00 Laboratory Results 03/31/16 04:29 03/31/16 05:00 03/30/16 03/31/16 04/01/16 05:59 05:59 05:59 Intake Total 1825 500 Output Total 1315 1295 50 Balance 510 -795 -50 PT 15.5 SEC (12.0-15.0) H 03/26/16 17:10 INR 1.23 (0.83-1.16) H 03/26/16 17:10 - Physical Exam Constitutional: no apparent distress, not in pain, obese, uncomfortable Cardiovascular: tachycardia, No systolic murmur, No irregularly irregular, No edema Respiratory: reduced air movement (poor insp effort bilat), No expiratory wheeze , No inspiratory crackles, No bronchial breath sounds Gastrointestinal: normoactive bowel sounds, soft, non-tender abdomen, no palpable masses, distension (moderately) Neurologic: AAOx3, sensation intact bilaterally, No weakness (motor 5/5 bilat LE ) Psychiatric: interacting appropriately, not anxious, not encephalopathic, thought process linear ICD10 Worksheet Patient Problems: Problems Problem Status Onset Scoliosis Acute
--- NOTE | 2016-03-31 14:07 | NEUSURGPN ---
Assessment/Plan: Assessment: status post T3-L5 fusion for scoliosis on 03/26 Tachycardia -resolving, will continue to monitor. Negative CT for PE and negative source of any infection Appreciate hospitalist service being on board 3500 Intraoperative blood loss -H/H -11/06 this am, will continue to monitor SAMRA output 390 last 24- Will take off suction today per Plan: Continue to optimize pain management - Long acting pain medication increased to TID- slept better last night Continue SAMRA- take off suction Encouraging IS- some atelectasis seen on CT PT/OT DVT Prophy: TEDs, SCDs, Lovenox Dispo planning- To rehab in next few days once cleared by therapies Discussed with Dr. Ames 03/28/16 08:15 Subjective: Doing well this am. in pain but just woke up and hasn't had pain medicine.No BMs. walking well with PT. Denies lightheadedness, sob, cp. Objective: NAD, VSS BLE 5/5 Sensation intact to lt touch Incision c/d/i SAMRA - minimal serosang fluid in buld this am- emptied 3 hours ago Catheter Insertion Date: 03/26/16 - Physician Discussed Patient with : Kandy Neurosurgery Physical Exam - Vitals, I&O, Labs I and O 03/30/16 03/31/16 04/01/16 05:59 05:59 05:59 Intake Total 1825 500 300 Output Total 1315 1295 120 Balance 510 -795 180 Intake: Oral (ml) 700 500 300 IV Infused (ml) 1125 Ns 1,000 ml @ 125 mls/hr 1125 IV CONT LEXX Rx#: [id number] Output: Urine (ml) 1000 900 Toilet 1000 900 Wound Drainage (ml) 315 395 120 Left Back Pablo Kilgore 315 395 120 Other: Intake Quantity Yes Yes Sufficient Number of Voids Toilet 3 1 1 Vital Signs Temp Pulse Resp BP Pulse Ox 37.1 C 126 H 16 138/89 H 87 L 03/31/16 08:00 03/31/16 08:00 03/31/16 08:00 03/31/16 08:00 03/31/16 08:00 Laboratory Results 03/31/16 04:29 03/31/16 05:00 ICD10 Worksheet Patient Problems: Problems Problem Status Onset Scoliosis Acute
[2016-04-01] MEDS: METHOCARBAMOL 750 MG TAB PO PRN ×4 (03:24→22:35)
[2016-04-01 04:59] LABS: HEMATOCRIT 27.7 % (40.0-51.0); HEMOGLOBIN 9.2 g/dL (13.7-17.5); MEAN CELL HEMOGLOBIN 31.3 pg (27.9-34.1); MEAN CELL HEMOGLOBIN CONCENTR. 33.2 g/dL (32.4-36.7); MEAN CELL VOLUME 94.2 fL (81.5-99.8); RED BLOOD CELL COUNT 2.94 10^6/uL (4.40-6.38); RED CELL DISTRIBUTION WIDTH 13.7 % (11.5-15.2)
[2016-04-01] MEDS: HYDROCODONE/APAP 10/325 TAB PO PRN ×4 (06:05→17:29)
--- NOTE | 2016-04-01 08:48 | NEUSURGPN ---
Assessment/Plan: Assessment: status post T3-L5 fusion for scoliosis on 03/26 Plan: Continue to optimize pain management Continue SAMRA Encouraging IS/pulmonary toliet for atelectasis PT/OT DVT Prophy: TEDs, SCDs, Lovenox Dispo planning- To rehab in next few days once cleared by therapies Discussed with Dr. Ames Subjective: Pain tolerable with medication. low back pain. Objective: NAD A&Ox3 MAEx4 5/5 and equal in BUE and BLE. Incision c/d/i Catheter Insertion Date: 03/26/16 - Physician Discussed Patient with DrElaina: K[facility] Neurosurgery Physical Exam - Vitals, I&O, Labs I and O 03/31/16 04/01/16 04/02/16 05:59 05:59 05:59 Intake Total 500 1500 200 Output Total 1295 150 Balance -795 1350 200 Intake: Oral (ml) 500 1500 200 Output: Urine (ml) 900 Toilet 900 Wound Drainage (ml) 395 150 Left Back Pablo Kilgore 395 150 Other: Intake Quantity Yes Sufficient Number of Voids Toilet 1 2 1 Number of Stools Toilet 1 Vital Signs Temp Pulse Resp BP Pulse Ox 36.7 C 111 H 15 138/90 H 91 L 04/01/16 07:21 04/01/16 07:21 04/01/16 07:21 04/01/16 07:21 04/01/16 07:21 Laboratory Results 04/01/16 04:20 03/31/16 05:00 ICD10 Worksheet Patient Problems: Problems Problem Status Onset Scoliosis Acute
[2016-04-01] MEDS: FAMOTIDINE 20 MG TAB PO SCH ×2 (09:18→20:32)
[2016-04-01] MEDS: morphINE SR 15 MG TAB PO SCH ×3 (09:18→20:31)
[2016-04-01] MEDS: ENOXAPARIN 40 MG/0.4 ML SYR SC SCH (09:19)
[2016-04-01] MEDS: POLYETHYLENE GLYCOL 3350 17 GM PKT PO SCH ×3 (10:35→20:33)
[2016-04-01] MEDS: SENNOSIDES/DOCUSATE SODIUM TAB PO SCH ×2 (10:35→20:32)
--- NOTE | 2016-04-01 11:55 | HOSPPROG ---
Hospitalist Progress Note Assessment/Plan: Assessment: 25-year-old male presents with acute lower back pain and scoliosis requiring thoracic spine fusion, complicated by systemic inflammatory response syndrome Plan: 1. Systemic inflammatory response syndrome. Acute, evidenced by tachycardia and leukocytosis without any clear evidence of infection. -the patient has been ruled out for pulmonary embolism with a negative CT angiogram -I suspect that the cause is postsurgical inflammation as well as pain -HR fluctuates based on activity, pain -cont on MS contin tid -leukocytosis improved -no further w/u for tachycardia indicated 2. Atelectasis. Present on CT angiogram, incentive spirometer 3. Acute blood loss anemia. Expected postoperatively, evidenced by hemoglobin level from 16.9-9.2, has indwelling drain -hold off on transfusion at this time, will reassess daily 4. Scoliosis. Pain management and postsurgical management under the direction of the surgical service -cont on bowel regimen, mag citrate today 5. Suspected post-op ileus. Cont on bowel regimen Hospital Medicine service will sign-off. Please contact Dr. Streeter if further issues arise. Subjective: Patient reports large bowel movement overnight Objective: Vital Signs Temp Pulse Resp BP Pulse Ox 36.7 C 111 H 15 138/90 H 91 L 04/01/16 07:21 04/01/16 07:21 04/01/16 07:21 04/01/16 07:21 04/01/16 07:21 Laboratory Results 04/01/16 04:20 03/31/16 05:00 03/31/16 04/01/16 04/02/16 05:59 05:59 05:59 Intake Total 500 1500 200 Output Total 1295 150 Balance -795 1350 200 PT 15.5 SEC (12.0-15.0) H 03/26/16 17:10 INR 1.23 (0.83-1.16) H 03/26/16 17:10 - Physical Exam Constitutional: no apparent distress, not in pain, obese, No uncomfortable Cardiovascular: tachycardia, No systolic murmur, No irregularly irregular, No edema Respiratory: reduced air movement (Poor inspiratory effort), No expiratory wheeze, No inspiratory crackles, No bronchial breath sounds, No respiratory distress Gastrointestinal: normoactive bowel sounds, soft, non-tender abdomen, no palpable masses Neurologic: AAOx3, sensation intact bilaterally Psychiatric: interacting appropriately, not anxious, not encephalopathic, thought process linear ICD10 Worksheet Patient Problems: Problems Problem Status Onset Scoliosis Acute
[2016-04-01] MEDS ORDERED: CALCIUM CARBONATE 500 MG CHEWABLE TAB PO PRN (23:04)
[2016-04-02] MEDS: HYDROCODONE/APAP 10/325 TAB PO PRN ×5 (01:38→21:13)
[2016-04-02] MEDS: METHOCARBAMOL 750 MG TAB PO PRN ×3 (05:52→19:28)
[2016-04-02] MEDS: ENOXAPARIN 40 MG/0.4 ML SYR SC SCH (08:16)
[2016-04-02] MEDS: morphINE SR 15 MG TAB PO SCH ×3 (08:17→21:13)
[2016-04-02] MEDS: FAMOTIDINE 20 MG TAB PO SCH ×2 (08:17→21:13)
[2016-04-02] MEDS: SENNOSIDES/DOCUSATE SODIUM TAB PO SCH ×2 (08:17→21:05)
[2016-04-02] MEDS: POLYETHYLENE GLYCOL 3350 17 GM PKT PO SCH ×3 (08:21→21:23)
--- NOTE | 2016-04-02 10:03 | SOAPPROG ---
SOAP Progress Note Assessment/Plan: Assessment: status post T3-L5 fusion for scoliosis on 03/26 slow improvent, limited by pain. pt does feel that his posture is improved when upright. Plan: encourage activity Pain control advance activity as tolerated DC planning Subjective: lying in bed. "I feel stiff." Denies numbness or tingling. Objective: Vital Signs Temp Pulse Resp BP Pulse Ox 36.9 C 120 H 20 163/85 H 96 04/02/16 00:08 04/02/16 08:14 04/02/16 08:14 04/02/16 08:14 04/02/16 08:14 Laboratory Results 04/01/16 04:20 03/31/16 05:00 04/01/16 04/02/16 04/03/16 05:59 05:59 05:59 Intake Total 1500 2200 Output Total 150 Balance 1350 2200 PT 15.5 SEC (12.0-15.0) H 03/26/16 17:10 INR 1.23 (0.83-1.16) H 03/26/16 17:10 NEURO: BROWER to command, sens +LT Dressing: CDI No SAMRANo Hardik ICD10 Worksheet Patient Problems: Problems Problem Status Onset Scoliosis Acute - ICD10 Problem Qualifiers (1) Scoliosis Qualifiers: Scoliosis type: S Idiopathic scoliosis type: I Spinal region: S
--- NOTE | 2016-04-02 11:26 | ECHO ---
[id number] + + [address] : : [place] [address] : : [phone] + + Adult Echocardiographic Report + ------+ :Name: ADRIAN BERKOWITZ RStudy Date: 04/02/2016 10:14 AM : : Hospital Admission Number: [id number] Janes n: 347: :: 1990 Gender: Male : :Age: 25 yrs Race: WH : :Reason For Study: Eval for cardiomyopathy : + ------+ MMode/2D Measurements \T\ Calculations IVSd: 1.0 cm LVIDd: 4.4 cm FS: 44.4 % Ao root diam: 3.1 cm LVPWd: 0.91 cm LVIDs: 2.5 cm EDV(Teich): 89.6 ml LA dimension: 3.2 cm ESV(Teich): 21.7 ml EF(Teich): 75.8 % Normal Measurement Values: + + :LVIDd (3.5-5.7cm) IVSd (0.6-1.1cm) LVPWd (0.6-1.1cm) Aortic Root (2.0-3.7cm)Left Atrium (1.5-4.0cm): :LV Vol(d) (76-115ml) LV Vol(s) (29-48ml) Ejec Fraction (50-65%)PV Jorge (0.6- 1.2m/s) TV Jorge (0.4-1.0m/s) : :MV E Jorge (0.8-1.0m/s)MV A Jorge (0.3-1.0m/s)LVOT Jorge (0.7-1.2m/s) Asc Ao Jorge ( 0.9-1.8m/s) : + + Doppler Measurements \T\ Calculations MV E max jorge: 57.6 cm/sec Ao V2 max: 128.0 cm/sec TR max jorge: 239.0 cm/sec MV A max jorge: 48.0 cm/sec Ao max P.6 mmHg TR max P.8 mmHg MV E/A: 1.2 Ao mean P.0 mmHg RAP systole: 5.0 mmHg Ao V2 mean: 89.4 cm/sec RVSP(TR): 27.8 mmHg Ao V2 VTI: 19.4 cm Left Ventricle The left ventricle is normal in size. There is normal left ventricular wall thickness. The left ventricle is hyperdynamic. Ejection Fraction = 70-75%. No regional wall motion abnormalities noted. Right Ventricle The right ventricle is normal in size and function. Atria The left atrial size is normal. Right atrial size is normal. The interatrial septum is intact with no evidence for an atrial septal defect. Mitral Valve The mitral valve is normal in structure and function. There is no evidence of mitral valve prolapse. There is no mitral valve stenosis. There is trace mitral regurgitation. Tricuspid Valve Normal tricuspid valve. There is trace tricuspid regurgitation. Right ventricular systolic pressure is normal. Aortic Valve The aortic valve is trileaflet. The aortic valve opens well. There is no aortic stenosis. There is no aortic insufficiency. Pulmonic Valve The pulmonic valve is normal in structure and function. There is no pulmonic valvular regurgitation. Great Vessels The aortic root is normal size. Pericardium/Pleural Trivial anterior pericardial effusion. Conclusion A complete two-dimensional transthoracic echocardiogram was performed (2D, M-mode, Doppler and color flow Doppler). The left ventricle is hyperdynamic. Ejection Fraction = 70-75%. There is trace mitral regurgitation. There is trace tricuspid regurgitation. Trivial anterior pericardial effusion Final Reading Physician: Lisandro Rowland signed on 04/02/2016 11:24 AM Ordering Physician: Garrett Streeter Performed By: Macy Marshall RDCS
[2016-04-03] MEDS: METHOCARBAMOL 750 MG TAB PO PRN ×4 (00:58→21:44)
[2016-04-03] MEDS: HYDROCODONE/APAP 10/325 TAB PO PRN ×3 (02:58→17:14)
--- NOTE | 2016-04-03 07:38 | SOAPPROG ---
SOAP Progress Note Assessment/Plan: Assessment: status post T3-L5 fusion for scoliosis on 03/26 slow improvent, limited by pain. pt does feel that his posture is improved when upright. Plan: encourage activity Pain control advance activity as tolerated DC planning Subjective: sitting at edge of bed. feeling good this AM denies weakness or tingling Objective: Vital Signs Temp Pulse Resp BP Pulse Ox 37.1 C 87 18 127/75 H 94 04/03/16 00:00 04/03/16 00:00 04/03/16 00:00 04/03/16 00:00 04/03/16 00:00 Laboratory Results 04/01/16 04:20 03/31/16 05:00 04/02/16 04/03/16 04/04/16 05:59 05:59 05:59 Intake Total 2200 3450 Output Total 750 Balance 2200 2700 PT 15.5 SEC (12.0-15.0) H 03/26/16 17:10 INR 1.23 (0.83-1.16) H 03/26/16 17:10 Neuro: BROWER, sens +LT ambulatory Incision: CDI ICD10 Worksheet Patient Problems: Problems Problem Status Onset Scoliosis Acute - ICD10 Problem Qualifiers (1) Scoliosis Qualifiers: Scoliosis type: S Idiopathic scoliosis type: I Spinal region: S
[2016-04-03] MEDS: ENOXAPARIN 40 MG/0.4 ML SYR SC SCH (08:57)
[2016-04-03] MEDS: SENNOSIDES/DOCUSATE SODIUM TAB PO SCH ×2 (08:57→21:57)
[2016-04-03] MEDS: morphINE SR 15 MG TAB PO SCH ×3 (08:57→21:44)
[2016-04-03] MEDS: FAMOTIDINE 20 MG TAB PO SCH ×2 (08:57→21:44)
[2016-04-03] MEDS: POLYETHYLENE GLYCOL 3350 17 GM PKT PO SCH ×3 (09:59→21:57)
[2016-04-04] MEDS: HYDROCODONE/APAP 10/325 TAB PO PRN ×4 (00:54→18:32)
[2016-04-04] MEDS: METHOCARBAMOL 750 MG TAB PO PRN ×4 (03:50→21:35)
--- NOTE | 2016-04-04 07:26 | SOAPPROG ---
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 planner looking at rehab options PT/OT scd/manisha/lovenox for dvt prophylaxis please call with neuro changes patient seen by Dr Ames 04/04/16 07:25 Subjective: back pain improving, no leg pain, no weakness Objective: Vital Signs Temp Pulse Resp BP Pulse Ox 37.2 C 126 H 14 135/96 H 94 04/03/16 23:12 04/03/16 23:12 04/03/16 23:12 04/03/16 23:12 04/03/16 23:12 Laboratory Results 04/01/16 04:20 03/31/16 05:00 04/03/16 04/04/16 04/05/16 05:59 05:59 05:59 Intake Total 3450 2500 Output Total 750 Balance 2700 2500 PT 15.5 SEC (12.0-15.0) H 03/26/16 17:10 INR 1.23 (0.83-1.16) H 03/26/16 17:10 AAOX4, +FC PERRL, EOMI, no facial droop 5/5 + light touch C/D/I ICD10 Worksheet Patient Problems: Problems Problem Status Onset Scoliosis Acute
[2016-04-04] MEDS: morphINE SR 15 MG TAB PO SCH ×3 (09:14→21:35)
[2016-04-04] MEDS: FAMOTIDINE 20 MG TAB PO SCH ×2 (09:14→21:35)
[2016-04-04] MEDS: POLYETHYLENE GLYCOL 3350 17 GM PKT PO SCH ×3 (09:15→22:07)
[2016-04-04] MEDS: SENNOSIDES/DOCUSATE SODIUM TAB PO SCH ×2 (09:15→21:36)
[2016-04-04] MEDS: ENOXAPARIN 40 MG/0.4 ML SYR SC SCH (09:15)
[2016-04-05 01:15] VITALS: RESP 18
[2016-04-05] MEDS: HYDROCODONE/APAP 10/325 TAB PO PRN ×2 (01:21→10:08)
[2016-04-05] MEDS: METHOCARBAMOL 750 MG TAB PO PRN ×2 (04:32→13:29)
--- NOTE | 2016-04-05 08:00 | SOAPPROG ---
SHELBI Progress Note Assessment/Plan: Assessment: status post T3-L5 fusion for scoliosis on 03/26 doing better every day. pt does feel that his posture is improved when upright. Plan: encourage activity Pain control advance activity as tolerated DC planning 04/05/16 07:58 Subjective: Sitting on edge of bed. Pain well controlled. very happy with his posture Objective: Vital Signs Temp Pulse Resp BP Pulse Ox 36.7 C 111 H 18 135/95 H 96 04/05/16 00:00 04/05/16 00:00 04/05/16 00:00 04/05/16 00:00 04/05/16 00:00 Laboratory Results 04/01/16 04:20 03/31/16 05:00 04/04/16 04/05/16 04/06/16 05:59 05:59 05:59 Intake Total 2500 2650 Output Total 450 Balance 2500 2200 PT 15.5 SEC (12.0-15.0) H 03/26/16 17:10 INR 1.23 (0.83-1.16) H 03/26/16 17:10 Neuro: BROWER, sens +LT ambulatory INcision: CDI ICD10 Worksheet Patient Problems: Problems Problem Status Onset Scoliosis Acute - ICD10 Problem Qualifiers (1) Scoliosis Qualifiers: Scoliosis type: S Idiopathic scoliosis type: I Spinal region: S
[2016-04-05 08:01] VITALS: BP 139/97; PULSE 110; TEMP 98.5; O2SAT 100
[2016-04-05] MEDS: FAMOTIDINE 20 MG TAB PO SCH (09:21)
[2016-04-05] MEDS: ENOXAPARIN 40 MG/0.4 ML SYR SC SCH (09:21)
[2016-04-05] MEDS: SENNOSIDES/DOCUSATE SODIUM TAB PO SCH (09:21)
[2016-04-05] MEDS: morphINE SR 15 MG TAB PO SCH (10:10)
[2016-04-05] MEDS: POLYETHYLENE GLYCOL 3350 17 GM PKT PO SCH (10:11)
--- NOTE | 2016-04-05 11:06 | PDIAF ---
- Diagnosis Code Status: Full Code - Medication Management Discharge Medications: Medications to Continue on Transfer Multivitamin 1 tab PO DAILY 03/15/16 [Last Taken 03/23/16] HYDROcodone/APAP 10/325 [[place] 10/325 (*)] 1 - 2 tab PO Q6HRS PRN #90 tab [Last Taken Unknown] Methocarbamol [Robaxin 750 mg (*)] 750 mg PO QID PRN #90 tab 04/05/16 [Last Taken Unknown] Polyethylene Glycol 3350 [Miralax 17 gm (*)] 17 gm PO TID #0 pkt 04/05/16 [Last Taken Unknown] Sennosides/Docusate Sodium [Senokot-S] 1 - 2 tab PO BID #0 tab 04/05/16 [Last Taken Unknown] morphINE SR [Ms Contin/Oramorph 15 mg (*)] 15 mg PO TID #90 tab 04/05/16 [Last Taken Unknown] Discharge Medications: Refer to the Discharge Home Medication list for PRN reason. - Orders Services needed: Home Care, Physical Therapy, Occupational Therapy Home Care Face to Face: I certify that this patient was under my care and that I had the required [id number] encounter meeting the encounter requirements on the discharge day. My findings support the fact that the patient is homebound as defined in CMS Chapter 7 Medicare Benefits Manual 30.1.1, The condition of the patient is such that there exists a normal inability to leave home and consequently, leaving home would require a considerable and taxing effort. Diet Recommendation: no restrictions on diet Diet Texture: Regular Texture Diet Wound Care Instructions: Monitor wound daily. keep steri strips in place until pt seen for post op visit - Follow Up Care Current Providers and Referrals: NONE *PRIMARY CARE P,. [Primary Care Provider] -
== END 2016-04-05 14:34 | disposition home health service (06) | DRG 458 ==
LOC: F3N 07:40 → F2N 18:34 → F3N 03-28 15:20
PROVIDERS: ADMIT Neurological Surgery; ATTEND Neurological Surgery
PROC: 0SG1071 Fusion of 2 or more Lumbar Vertebral Joints with Autologous Tissue Substitute, Posterior Approach, Posterior Column, Open Approach (ICD-10-PCS; principal; 2016-03-26 09:15)
PROC: 3E0U0GB Introduction of Recombinant Bone Morphogenetic Protein into Joints, Open Approach (ICD-10-PCS; principal; 2016-03-26 09:15)
PROC: 0RG8071 Fusion of 8 or more Thoracic Vertebral Joints with Autologous Tissue Substitute, Posterior Approach, Posterior Column, Open Approach (ICD-10-PCS; principal; 2016-03-26 09:15)
DX: M41.114 Juvenile idiopathic scoliosis, thoracic region (principal)
CPT/HCPCS: 97116-GP; 97161-GP; 97165-GO; 97530-GP; 97535-GO; C1713; C1762; J0690; J1170; J1200; J1650; J2250; J2274; J2405; J2704; J3010; J3490; J7060; Q9967

== ENCOUNTER → 2016-07-15 | Outpatient (CLI) | payer OTHER, MEDICAID | LOC: FIMAGING 13:37 | PROVIDERS: ATTEND Physician Assistant Surgical | DX: Z09 Encounter for follow-up examination after completed treatment for conditions other than malignant neoplasm (principal); Z98.890 Other specified postprocedural states; M43.8X4 Other specified deforming dorsopathies, thoracic region ==

== ENCOUNTER → 2016-10-28 | Outpatient (CLI) | payer OTHER, MEDICAID | LOC: EDSTATUS 11:30 → FIMAGING 14:43 | PROVIDERS: ATTEND Physician Assistant Surgical | DX: M41.9 Scoliosis, unspecified (principal); Z98.1 Arthrodesis status ==